=== PATIENT | female | born 1930 | race American Indian/Alaskan Native ===

== ENCOUNTER 2020-05-12 01:54 | Emergency (ER) | payer MEDICARE, MEDICAID ==
[2020-05-12] MEDS ORDERED: SODIUM CHLORIDE 0.9% 500 ML 500 ML IV ONE (03:06)
--- NOTE | 2020-05-12 03:08 | Emergency Department Report ---
ED Altered Mental Status HPI - General Chief Complaint: Altered Mental Status Stated Complaint: HALLUCINATIONS HYPERGLYCEMIA PUI?: No Time Seen by Provider: 05/12/20 03:05 Source: EMS Mode of arrival: Stretcher Limitations: Altered Mental Status - History of Present Illness Initial Comments: Patient is an 89-year-old female that presents emergency room with complaints of altered mental status, hallucinations. Patient brought in by EMS. Per EMS the patient has been having audio and tactile hallucinations. Family states the patient is improved today. Patient denies pain. Patient denies hallucinations. Patient is currently alert and oriented x1. Patient is oriented to person only. MD Complaint: altered mental status, confusion - Related Data Home Medications Medication Instructions Recorded Confirmed Last Taken Insulin Lispro Protamin/Lispro 24 units SUB-Q DAILY 05/12/20 05/12/20 1 Day Ago [HumaLOG Mix 75-25 Kwikpen] ~05/11/20 Allergies Allergy/AdvReac Type Severity Reaction Status Date / Time No Known Allergies Allergy Unverified 05/12/20 06:06 ED Review of Systems ROS: Stated complaint: HALLUCINATIONS HYPERGLYCEMIA Other details as noted in HPI Comment: Unobtainable due to pts medical conditions ED Past Medical Hx - Past Medical History Previous Medical History?: Yes - Family History Family history: no significant - Social History Smoking Status: Unknown if ever smoked Substance Use Type: None - Medications Home Medications: Home Medications Medication Instructions Recorded Confirmed Last Taken Type Insulin Lispro Protamin/Lispro 24 units SUB-Q DAILY 05/12/20 05/12/20 1 Day Ago History [HumaLOG Mix 75-25 Kwikpen] ~05/11/20 ED Physical Exam - General Limitations: Altered Mental Status General appearance: alert, in no apparent distress - Head Head exam: Present: atraumatic, normocephalic - Eye Eye exam: Present: normal appearance, PERRL Pupils: Present: normal accommodation - ENT ENT exam: Present: mucous membranes moist - Neck Neck exam: Present: normal inspection - Respiratory Respiratory exam: Present: normal lung sounds bilaterally. Absent: respiratory distress, wheezes - Cardiovascular Cardiovascular Exam: Present: regular rate, normal rhythm. Absent: systolic murmur, diastolic murmur, rubs, gallop - GI/Abdominal GI/Abdominal exam: Present: soft, normal bowel sounds. Absent: distended, te nderness, guarding - Extremities Exam Extremities exam: Present: normal inspection - Back Exam Back exam: Present: normal inspection - Neurological Exam Neurological exam: Present: alert, altered - Psychiatric Psychiatric exam: Present: normal affect, normal mood - Skin Skin exam: Present: warm, dry, intact, normal color. Absent: rash - Assessment Assessment Interval: Baseline - Level of Consciousness 1a. Level of Consciousness: alert/keenly responsive - LOC Questions 1b. LOC Questions: answers both correctly - LOC Command 1c. LOC Commands: performs tasks correctly - Best Gaze 2. Best Gaze: normal - Visual 3. Visual: no visual loss - Facial Palsy 4. Facial Palsy: normal symmetrical movement - Motor Arm 5a. Motor Arm Left: no drift 5b. Motor Arm Right: no drift - Motor Leg 6a. Motor Leg Left: no drift 6b. Motor Leg Right: no drift - Limb Ataxia 7. Limb Ataxia: absent - Sensory 8. Sensory: normal - Best Language 9. Best Language: no aphasia - Dysarthria 10. Dysarthria: normal - Extinction and Inattention 11. Extinction/Inattention: no abnormality - Scoring Total Score: 0 Stroke Severity: No Stroke Symptoms ED Course Vital Signs 05/12/20 05/12/20 05/12/20 02:15 02:30 02:45 Temperature 98.3 F Pulse Rate 93 H 89 Respiratory 16 18 15 Rate Blood Pressure 127/59 115/52 Blood Pressure 136/75 [Left] O2 Sat by Pulse 98 96 96 Oximetry 05/12/20 05/12/20 05/12/20 03:00 03:15 03:30 Temperature Pulse Rate 85 82 80 Respiratory 14 16 17 Rate Blood Pressure 93/42 110/44 111/50 Blood Pressure [Left] O2 Sat by Pulse 97 97 97 Oximetry 05/12/20 05/12/20 05/12/20 03:45 04:01 04:23 Temperature Pulse Rate 79 80 83 Respiratory 12 13 12 Rate Blood Pressure 119/49 127/51 Blood Pressure [Left] O2 Sat by Pulse 98 98 100 Oximetry 05/12/20 05/12/20 05/12/20 04:31 05:01 06:01 Temperature Pulse Rate 80 80 75 Respiratory 18 17 11 L Rate Blood Pressure 157/70 102/36 Blood Pressure [Left] O2 Sat by Pulse 99 97 Oximetry 05/12/20 05/12/20 05/12/20 07:01 08:01 08:30 Temperature Pulse Rate 78 Respiratory 14 18 Rate Blood Pressure 102/36 102/36 Blood Pressure [Left] O2 Sat by Pulse 99 98 Oximetry 05/12/20 05/12/20 05/12/20 08:32 13:06 16:09 Temperature 98.6 F Pulse Rate 79 72 72 Respiratory 18 18 18 Rate Blood Pressure Blood Pressure 143/65 181/71 125/43 [Left] O2 Sat by Pulse 98 98 97 Oximetry 05/12/20 05/13/20 05/13/20 18:47 10:55 15:53 Temperature 98.1 F 97.4 F L Pulse Rate 96 H 104 H 102 H Respiratory 18 16 16 Rate Blood Pressure Blood Pressure 125/66 131/74 126/49 [Left] O2 Sat by Pulse 96 99 98 Oximetry - Reevaluation(s) Reevaluation #1: Patient resting comfortably in bed. I discussed all results with patient. I discussed plan of care with patient. My plan is for the patient be admitted to the general psych unit. A mental health evaluation will be placed in the syst em. Patient will remain in the ER as an ER hold until the patient is cleared by our psychiatric team. The patient's final disposition will come from our psychiatric team. 05/12/20 05:45 - Lab Data Result diagrams: 05/12/20 03:17 05/12/20 03:17 Lab Results 05/12/20 05/12/20 05/12/20 Range/Units 03:17 03:17 03:17 WBC 11.6 H (4.5-11.0) K/mm3 RBC 3.81 (3.65-5.03) M/mm3 Hgb 11.5 (10.1-14.3) gm/dl Hct 34.3 (30.3-42.9) % MCV 90 (79-97) fl MCH 30 (28-32) pg MCHC 33 (30-34) % RDW 12.8 L (13.2-15.2) % Plt Count 327 (140-440) K/mm3 Lymph % (Auto) 23.9 (13.4-35.0) % [place] % (Auto) 11.0 H (0.0-7.3) % Eos % (Auto) 5.1 H (0.0-4.3) % Baso % (Auto) 0.2 (0.0-1.8) % Lymph # 2.8 (1.2-5.4) K/mm3 [place] # 1.3 H (0.0-0.8) K/mm3 Eos # 0.6 H (0.0-0.4) K/mm3 Baso # 0.0 (0.0-0.1) K/mm3 Seg Neutrophils % 59.8 (40.0-70.0) % Seg Neutrophils # 6.9 (1.8-7.7) K/mm3 Sodium 134 L (137-145) mmol/L Potassium 4.0 (3.6-5.0) mmol/L Chloride 99.9 (98-107) mmol/L Carbon Dioxide 23 (22-30) mmol/L Anion Gap 15 mmol/L BUN 13 (7-17) mg/dL Creatinine 0.8 (0.6-1.2) mg/dL Estimated GFR > 60 ml/min BUN/Creatinine Ratio 16 % Glucose 194 H (65-100) mg/dL POC Glucose (70-105) Lactic Acid 1.80 (0.7-2.0) mmol/L Calcium 8.8 (8.4-10.2) mg/dL Total Bilirubin 0.20 (0.1-1.2) mg/dL AST 12 (5-40) units/L ALT 6 L (7-56) units/L Alkaline Phosphatase 89 (35-129) units/L Total Creatine Kinase 53 (30-135) units/L Troponin T < 0.010 (0.00-0.029) ng/mL Total Protein 6.3 (6.3-8.2) g/dL Albumin 3.4 L (3.9-5) g/dL Albumin/Globulin Ratio 1.2 % Urine Color (Yellow) Urine Turbidity (Clear) Urine pH (5.0-7.0) Ur Specific [place] (1.003-1.030) Urine Protein (Negative) mg/dL Urine Glucose (UA) (Negative) mg/dL Urine Ketones (Negative) mg/dL Urine Blood (Negative) Urine Nitrite (Negative) Urine Bilirubin (Negative) Urine Urobilinogen (<2.0) mg/dL Ur Leukocyte Esterase (Negative) Urine WBC (Auto) (0.0-6.0) /HPF Urine RBC (Auto) (0.0-6.0) /HPF 08/13/20 08/13/20 08/13/20 Range/Units 04:54 10:58 16:23 WBC (4.5-11.0) K/mm3 RBC (3.65-5.03) M/mm3 Hgb (10.1-14.3) gm/dl Hct (30.3-42.9) % MCV (79-97) fl MCH (28-32) pg MCHC (30-34) % RDW (13.2-15.2) % Plt Count (140-440) K/mm3 Lymph % (Auto) (13.4-35.0) % [place] % (Auto) (0.0-7.3) % Eos % (Auto) (0.0-4.3) % Baso % (Auto) (0.0-1.8) % Lymph # (1.2-5.4) K/mm3 [place] # (0.0-0.8) K/mm3 Eos # (0.0-0.4) K/mm3 Baso # (0.0-0.1) K/mm3 Seg Neutrophils % (40.0-70.0) % Seg Neutrophils # (1.8-7.7) K/mm3 Sodium (137-145) mmol/L Potassium (3.6-5.0) mmol/L Chloride (98-107) mmol/L Carbon Dioxide (22-30) mmol/L Anion Gap mmol/L BUN (7-17) mg/dL Creatinine (0.6-1.2) mg/dL Estimated GFR ml/min BUN/Creatinine Ratio % Glucose (65-100) mg/dL POC Glucose 246 H 237 H (70-105) Lactic Acid (0.7-2.0) mmol/L Calcium (8.4-10.2) mg/dL Total Bilirubin (0.1-1.2) mg/dL AST (5-40) units/L ALT (7-56) units/L Alkaline Phosphatase (35-129) units/L Total Creatine Kinase (30-135) units/L Troponin T (0.00-0.029) ng/mL Total Protein (6.3-8.2) g/dL Albumin (3.9-5) g/dL Albumin/Globulin Ratio % Urine Color Straw (Yellow) Urine Turbidity Clear (Clear) Urine pH 6.0 (5.0-7.0) Ur Specific [place] 1.006 (1.003-1.030) Urine Protein <15 mg/dl (Negative) mg/dL Urine Glucose (UA) 50 (Negative) mg/dL Urine Ketones Neg (Negative) mg/dL Urine Blood Neg (Negative) Urine Nitrite Neg (Negative) Urine Bilirubin Neg (Negative) Urine Urobilinogen < 2.0 (<2.0) mg/dL Ur Leukocyte Esterase Neg (Negative) Urine WBC (Auto) < 1.0 (0.0-6.0) /HPF Urine RBC (Auto) 2.0 (0.0-6.0) /HPF 05/13/20 Range/Units 15:49 WBC (4.5-11.0) K/mm3 RBC (3.65-5.03) M/mm3 Hgb (10.1-14.3) gm/dl Hct (30.3-42.9) % MCV (79-97) fl MCH (28-32) pg MCHC (30-34) % RDW (13.2-15.2) % Plt Count (140-440) K/mm3 Lymph % (Auto) (13.4-35.0) % [place] % (Auto) (0.0-7.3) % Eos % (Auto) (0.0-4.3) % Baso % (Auto) (0.0-1.8) % Lymph # (1.2-5.4) K/mm3 [place] # (0.0-0.8) K/mm3 Eos # (0.0-0.4) K/mm3 Baso # (0.0-0.1) K/mm3 Seg Neutrophils % (40.0-70.0) % Seg Neutrophils # (1.8-7.7) K/mm3 Sodium (137-145) mmol/L Potassium (3.6-5.0) mmol/L Chloride (98-107) mmol/L Carbon Dioxide (22-30) mmol/L Anion Gap mmol/L BUN (7-17) mg/dL Creatinine (0.6-1.2) mg/dL Estimated GFR ml/min BUN/Creatinine Ratio % Glucose (65-100) mg/dL POC Glucose 314 H (70-105) Lactic Acid (0.7-2.0) mmol/L Calcium (8.4-10.2) mg/dL Total Bilirubin (0.1-1.2) mg/dL AST (5-40) units/L ALT (7-56) units/L Alkaline Phosphatase (35-129) units/L Total Creatine Kinase (30-135) units/L Troponin T (0.00-0.029) ng/mL Total Protein (6.3-8.2) g/dL Albumin (3.9-5) g/dL Albumin/Globulin Ratio % Urine Color (Yellow) Urine Turbidity (Clear) Urine pH (5.0-7.0) Ur Specific [place] (1.003-1.030) Urine Protein (Negative) mg/dL Urine Glucose (UA) (Negative) mg/dL Urine Ketones (Negative) mg/dL Urine Blood (Negative) Urine Nitrite (Negative) Urine Bilirubin (Negative) Urine Urobilinogen (<2.0) mg/dL Ur Leukocyte Esterase (Negative) Urine WBC (Auto) (0.0-6.0) /HPF Urine RBC (Auto) (0.0-6.0) /HPF - EKG Data -: EKG Interpreted by Mt EKG shows normal: sinus rhythm, axis, intervals, QRS complexes, ST-T waves Rate: normal - Radiology Data Radiology results: report reviewed CHEST 1 VIEW INDICATION / CLINICAL INFORMATION: Altered Mental Status. COMPARISON: 12/29/2010 FINDINGS: SUPPORT DEVICES: None. HEART / MEDIASTINUM: No significant abnormality. LUNGS / PLEURA: No significant pulmonary or pleural abnormality. No pneumothorax. ADDITIONAL FINDINGS: No significant additional findings. IMPRESSION: No acute disease or interval change from 12/29/2010 CT head/brain wo con INDICATION / CLINICAL INFORMATION: Altered Mental Status. TECHNIQUE: All CT scans at this location are performed using CT dose reduction for ALARA by means of automated exposure control. COMPARISON: None available. FINDINGS: Ventricle size is normal. There is focal low density seen in the left parieto- occipital region consistent with infarction. No mass or mass effect is seen. There is no evidence of intracranial hemorrhage. Visualized paranasal sinuses are clear. IMPRESSION: Focal low density in the left parieto-occipital region consistent with infarction. - Medical Decision Making Patient is an 89-year-old female that presents emergency room via EMS for hallucinations and altered mental status. Patient also had sleep for 2 days. Patient's family sent the patient to the emergency room for evaluation. Patient is confused on evaluation. Patient had labs and CT done. Patient's labs were unremarkable. Patient's UA was negative for UTI. Patient CT of the head was negative for acute findings. Patient is medically cleared. Patient will require admission to the geriatric psych floor. A mental health consult has been placed in system. Patient's final disposition will come from our psychiatry team. - Differential Diagnosis Psychosis, hallucination, altered mental status, insomnia Critical care attestation.: If time is entered above; I have spent that time in minutes in the direct care of this critically ill patient, excluding procedure time. ED Disposition Clinical Impression: Hallucination, Acute psychosis Altered mental state Qualifiers: Altered mental status type: unspecified Qualified Code(s): R41.82 - Altered mental status, unspecified Insomnia Qualifiers: Insomnia type: unspecified Qualified Code(s): G47.00 - Insomnia, unspecified Disposition: DC-01 TO HOME OR SELFCARE Is pt being admited?: No Does the pt Need Aspirin: No Condition: Stable Additional Instructions: OUTPATIENT MENTAL HEALTH RESOURCES [facility], [facility] Donita Milan MD: [address] [place] [address] [facility] [address] [place] [address] [place] [address] [place] [facility]: [employer] [address] [place] [address] [place] [address] [phone] [facility] Healthcare: [address] [place] [address] [address] [place] [address] [place] [address] [facility] [address] [facility]: Leeroy Galindo MD: [address] [facility] [address] [facility] [id number] [facility]: [address] [place], [place] [id number] [phone] [place] CRISIS AND ACCESS LINE: Referrals: PRIMARY CAREMD [Primary Care Provider] - 3-5 Days Time of Disposition: 05:46
[2020-05-12 03:55] LABS: Basophils % (Auto) 0.2 % (0.0-1.8); Eosinophils # (Auto) 0.6 K/mm3 (0.0-0.4); Eosinophils % (Auto) 5.1 % (0.0-4.3); Hematocrit 34.3 % (30.3-42.9); Hemoglobin 11.5 gm/dl (10.1-14.3); Lymphocytes # (Auto) 2.8 K/mm3 (1.2-5.4); Lymphocytes % (Auto) 23.9 % (13.4-35.0); Mean Corpuscular HGB Conc 33 % (30-34); Mean Corpuscular Volume 90 fl (79-97); Monocytes # (Auto) 1.3 K/mm3 (0.0-0.8); Platelet Count 327 K/mm3 (140-440); Red Blood Count 3.81 M/mm3 (3.65-5.03); Red Cell Distribution Width 12.8 % (13.2-15.2)
[2020-05-12 04:08] LABS: Alanine Aminotransferase 6 units/L (7-56); Albumin 3.4 g/dL (3.9-5); BUN/Creatinine Ratio 16; Blood Urea Nitrogen 13 mg/dL (7-17); Calcium 8.8 mg/dL (8.4-10.2); Hemolysis Index 7
--- NOTE | 2020-05-12 04:24 | XRay Report ---
CHEST 1 VIEW INDICATION / CLINICAL INFORMATION: Altered Mental Status. COMPARISON: 12/29/2010 FINDINGS: SUPPORT DEVICES: None. HEART / MEDIASTINUM: No significant abnormality. LUNGS / PLEURA: No significant pulmonary or pleural abnormality. No pneumothorax. ADDITIONAL FINDINGS: No significant additional findings. IMPRESSION: No acute disease or interval change from 12/29/2010 Signer Name: Mina Ware MD FACR Signed: 05/12/2020 4:20 AM Workstation Name: [id number]
--- NOTE | 2020-05-12 04:35 | Cat Scan Report ---
CT head/brain wo con INDICATION / CLINICAL INFORMATION: Altered Mental Status. TECHNIQUE: All CT scans at this location are performed using CT dose reduction for ALARA by means of automated e xposure control. COMPARISON: None available. FINDINGS: Ventricle size is normal. There is focal low density seen in the left parieto-occipital region consis tent with infarction. No mass or mass effect is seen. There is no evidence of intracranial hemorrhage . Visualized paranasal sinuses are clear. IMPRESSION: Focal low density in the left parieto-occipital region consistent with infarction. Signer Name: Mina Wrae MD FACR Signed: 05/12/2020 4:30 AM Workstation Name: [id number]
[2020-05-12 05:17] LABS: Bilirubin,Urine NEG (Negative); Blood,Urine NEG (Negative); Color,Urine Straw (Yellow); Protein,Urine <15 mg/dL mg/dL (Negative); Urobilinogen,Urine < 2.0 mg/dL (<2.0); WBC,Urine < 1.0 /HPF (0.0-6.0)
[2020-05-12] MEDS ORDERED: DEXTROSE 50% IN WATER (25GM) 50 ML SYRINGE IV PRN (12:50)
[2020-05-12] MEDS ORDERED: INSULIN REGULAR, HUMAN 100 UNIT/ML 3ML VIAL SUB-Q ONE ×2 (12:54→17:00)
[2020-05-12] MEDS ORDERED: INSULIN REGULAR, HUMAN 100 UNITS/1 ML ONE (13:00)
[2020-05-12] MEDS ORDERED: INSULIN REGULAR, HUMAN 100 UNIT/ML 3ML VIAL SUB-Q SCH ×2 (17:00→17:06)
[2020-05-13] MEDS ORDERED: SODIUM CHLORIDE 0.9% 1000 ML 1,000 ML ONE (00:28)
[2020-05-13] MEDS ORDERED: ACETAMINOPHEN 325 MG TAB PO ONE (15:18)
[2020-05-13 15:54] VITALS: BP 126/49
== END 2020-05-13 18:55 | disposition home or self-care (01) ==
LOC: ED 01:54
DX: G47.00 Insomnia, unspecified (principal); R41.82 Altered mental status, unspecified; F23 Brief psychotic disorder; Z79.899 Other long term (current) drug therapy
CPT/HCPCS: 36415; 70450; 71045; 80053; 81001; 82140; 82550; 82962; 84484; 85025; 93005; 99285; J7030; J7040; 96372; J1815

== ENCOUNTER 2020-12-10 16:39 | Emergency (ER) | payer MEDICARE ==
[2020-12-10] MEDS ORDERED: ONDANSETRON 4 MG/2 ML INJ IV ONE (16:56)
[2020-12-10] MEDS ORDERED: SODIUM CHLORIDE 0.9% 500 ML 500 ML IV ONE (16:56)
[2020-12-10] MEDS ORDERED: MORPHINE 4 MG/1 ML INJ IV ONE (16:56)
--- NOTE | 2020-12-10 17:01 | Emergency Department Report ---
ED Abdominal Pain HPI - General Stated Complaint: ABD PAIN Time Seen by Provider: 12/10/20 16:51 Source: patient, EMS - History of Present Illness Initial Comments: Patient is 89 years old female with history of hypertension, diabetes and dementia. Patient also had remote history of breast cancer. Patient presented to the ER via EMS from home for evaluation of abdominal pain. EMS stated that patient found to be clammy with a blood sugar of 67 patient given glucose by EMS and her blood sugar went up to 90. Patient family stated that patient was given milk of magnesia however she did have a bowel movement before the symptoms started. Patient is currently complaining of diffuse abdominal pain. She also stated that her chest hurt but she is unable to specify specific location. No recent history of fever or chills. MD Complaint: abdominal pain -: This afternoon Location: diffuse Migration to: no migration Severity: moderate Consistency: constant - Related Data Home Medications Medication Instructions Recorded Confirmed Last Taken Insulin Lispro Protamin/Lispro 24 units SUB-Q DAILY 05/12/20 05/12/20 1 Day Ago [HumaLOG Mix 75-25 Kwikpen] ~05/11/20 Previous Rx's Medication Instructions Recorded Last Taken Type Ciprofloxacin HCl 500 mg PO BID #14 tablet 12/10/20 Unknown Rx Docusate Sodium [Colace] 100 mg PO BID PRN #60 capsule 12/10/20 Unknown Rx Allergies Allergy/AdvReac Type Severity Reaction Status Date / Time No Known Allergies Allergy Unverified 05/12/20 06:06 ED Review of Systems ROS: Stated complaint: ABD PAIN Other details as noted in HPI Comment: All other systems reviewed and negative Constitutional: denies: chills, fever Respiratory: denies: cough, shortness of breath Cardiovascular: chest pain. denies: palpitations, dyspnea on exertion Gastrointestinal: abdominal pain, nausea, constipation. denies: vomiting, diarrhea, hematemesis, melena, hematochezia Musculoskeletal: denies: back pain Neurological: denies: headache, weakness ED Past Medical Hx - Past Medical History Hx Hypertension: Yes Hx Diabetes: Yes - Surgical History Additional Surgical History: unable to recall - Social History Smoking Status: Unknown if ever smoked Substance Use Type: None - Medications Home Medications: Home Medications Medication Instructions Recorded Confirmed Last Taken Type Insulin Lispro Protamin/Lispro 24 units SUB-Q DAILY 05/12/20 05/12/20 1 Day Ago History [HumaLOG Mix 75-25 Kwikpen] ~05/11/20 Ciprofloxacin HCl 500 mg PO BID #14 tablet 12/10/20 Unknown Rx Docusate Sodium [Colace] 100 mg PO BID PRN #60 capsule 12/10/20 Unknown Rx ED Physical Exam - General General appearance: alert, in distress - Head Head exam: Present: atraumatic, normocephalic, normal inspection - Eye Eye exam: Present: normal appearance, PERRL - ENT ENT exam: Present: normal exam, normal orophraynx, mucous membranes moist - Neck Neck exam: Present: normal inspection, full ROM. Absent: tenderness, meningismus - Respiratory Respiratory exam: Present: normal lung sounds bilaterally - Cardiovascular Cardiovascular Exam: Present: regular rate, normal rhythm, normal heart sounds - GI/Abdominal GI/Abdominal exam: Present: soft, normal bowel sounds, mass. Absent: distended, tenderness, guarding, rebound, rigid, organomegaly, bruit, pulsatile mass - Extremities Exam Extremities exam: Present: normal inspection, full ROM, normal capillary refill. Absent: tenderness, pedal edema, calf tenderness - Back Exam Back exam: Present: normal inspection - Neurological Exam Neurological exam: Present: alert. Absent: motor sensory deficit - Psychiatric Psychiatric exam: Present: anxious - Skin Skin exam: Present: warm, intact, normal color ED Course Vital Signs 12/10/20 12/10/20 12/10/20 17:00 17:15 17:16 Temperature 97.6 F Pulse Rate 92 H Respiratory 21 21 Rate Blood Pressure Blood Pressure 147/62 [Left] O2 Sat by Pulse 100 99 99 Oximetry 12/10/20 12/10/20 12/10/20 18:01 18:54 19:32 Temperature 97.4 F L Pulse Rate 80 96 H 89 Respiratory 10 L 21 15 Rate Blood Pressure 145/46 Blood Pressure 148/58 144/65 [Left] O2 Sat by Pulse 98 98 98 Oximetry 12/10/20 20:42 Temperature Pulse Rate 86 Respiratory 13 Rate Blood Pressure Blood Pressure 153/75 [Left] O2 Sat by Pulse 100 Oximetry - Reevaluation(s) Reevaluation #1: 12/10/20 21:02 Patient stated that she is feeling much better after the morphine. Patient sitting in the bed in no acute distress. Patient still denying any chest pain. No nausea or vomiting. We will continue to monitor. Reevaluation #2: 12/10/20 22:58 Patient stated that she is feeling much better and she want to go back home. Patient is alert, oriented x3 no acute distress. Second troponin is pending. ED Medical Decision Making - Lab Data Result diagrams: 12/10/20 17:01 12/10/20 17:01 - EKG Data -: EKG Interpreted by Me EKG shows normal: sinus rhythm Rate: normal - EKG Data Interpretation: no acute changes - Radiology Data Radiology results: report reviewed - Medical Decision Making Patient is 89 years old female with history of hypertension, diabetes and dementia. Patient also had remote history of breast cancer. Patient presented to the ER via EMS from home for evaluation of abdominal pain. EMS stated that patient found to be clammy with a blood sugar of 67 patient given glucose by EMS and her blood sugar went up to 90. Patient family stated that patient was given milk of magnesia however she did have a bowel movement before the symptoms started. Patient is currently complaining of diffuse abdominal pain. She also stated that her chest hurt but she is unable to specify specific location. No recent history of fever or chills. EKG is unremarkable. Chest x-ray is negative for acute finding. Labs reviewed and is unremarkable. CT abdomen and pelvis with IV contrast showed constipation. Patient received morphine 2 mg and Zofran. Patient stated that she is feeling much better. Patient given prescription for Colace and advised to follow-up with her primary doctor in the next 2 to 3 days and to return to the ER if she develop any new symptoms. Critical care attestation.: If time is entered above; I have spent that time in minutes in the direct care of this critically ill patient, excluding procedure time. ED Disposition Clinical Impression: Acute abdominal pain, Constipation, UTI (urinary tract infection) Disposition: -01 TO HOME OR SELFCARE Is pt being admited?: No Condition: Stable Instructions: Abdominal Pain, Adult, Constipation, Adult, Urinary Tract Infection, Adult Prescriptions: Ciprofloxacin HCl 500 mg PO BID #14 tablet Docusate Sodium [Colace] 100 mg PO BID PRN #60 capsule PRN Reason: Constipation Referrals: ANGIE ANDERSON MD [Primary Care Provider] - 3-5 Days
[2020-12-10 17:30] LABS: Basophils # (Auto) 0.1 K/mm3 (0.0-0.1); Basophils % (Auto) 0.9 % (0.0-1.8); Eosinophils # (Auto) 0.2 K/mm3 (0.0-0.4); Eosinophils % (Auto) 1.2 % (0.0-4.3); Hematocrit 33.2 % (30.3-42.9); Hemoglobin 11.4 gm/dl (10.1-14.3); Lymphocytes # (Auto) 2.6 K/mm3 (1.2-5.4); Lymphocytes % (Auto) 19.6 % (13.4-35.0); Mean Corpuscular HGB Conc 34 % (30-34); Mean Corpuscular Volume 88 fl (79-97); Monocytes # (Auto) 1.1 K/mm3 (0.0-0.8); Monocytes % (Auto) 8.6 % (0.0-7.3); Platelet Count 368 K/mm3 (140-440); Red Blood Count 3.75 M/mm3 (3.65-5.03); Red Cell Distribution Width 12.8 % (13.2-15.2)
[2020-12-10 17:38] LABS: INR 1.02 (0.87-1.13)
[2020-12-10 17:39] LABS: Partial Thromboplastin Time 30.3 Sec. (24.2-36.6)
[2020-12-10 17:48] LABS: Alanine Aminotransferase < 5 units/L (7-56); Albumin 4.2 g/dL (3.9-5); BUN/Creatinine Ratio 18; Bilirubin,Direct < 0.2 mg/dL (0-0.2); Blood Urea Nitrogen 21 mg/dL (7-17); Calcium 9.9 mg/dL (8.4-10.2); Hemolysis Index 18
[2020-12-10] MEDS ORDERED: PIPERACILLIN/TAZOBACTAM 3.375 3.375 GM/50 ML BAG IV ONE (18:22)
--- NOTE | 2020-12-10 19:20 | Cat Scan Report ---
CT ABDOMEN AND PELVIS WITH CONTRAST INDICATION / CLINICAL INFORMATION: Pain. TECHNIQUE: Axial CT images were obtained through the abdomen and pelvis after IV contrast. All CT sc ans at this location are performed using CT dose reduction for ALARA by means of automated exposure c ontrol. COMPARISON: None available. FINDINGS: Small hiatal hernia. Visualized lung bases are clear. Gallbladder is surgically absent. Liver, spleen, and adrenals are unremarkable. Pancreas is appropria te for age. There are prominent areas of cortical scarring within the right kidney with patchy areas of diminishe d enhancement throughout the right kidney. Small left renal cyst. No hydronephrosis. Bladder is parti ally decompressed, though grossly unremarkable. Uterus/adnexa are unremarkable for age. Moderate stool distends the rectal vault with fluid and stool noted throughout the remainder of the c olon. No colonic wall thickening. Postoperative changes right hemicolectomy. Stomach and small bowel are within normal limits. Moderate calcified plaque throughout the abdominal aorta and major branching vessels with severe athe rosclerotic narrowing of the right renal artery. The other major branches are patent. No aneurysm. There is a 5.3 cm chronic appearing collection in the right anterior abdominal wall, may reflect planning associate hussain hematoma. No free fluid, free air, or focal fluid collection is identified. IMPRESSION: 1. 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 Acute infarction or pyelonephritis is felt less likely. 2. Moderate amount of retained stool within the colon with a prominent amount of stool distending the rectal vault. Findings likely reflect constipation with fecal impaction. No evidence of stercoral co litis. 3. Otherwise, no acute abnormality of the abdomen or pelvis. 4. Additional chronic and postoperative findings as above. Signer Name: Mynor Randall MD Signed: 12/10/2020 7:16 PM Workstation Name: [id number]
[2020-12-10 19:59] LABS: Bilirubin,Urine NEG (Negative); Blood,Urine NEG (Negative); Color,Urine Yellow (Yellow); Mucus,Urine FEW /HPF; Protein,Urine <15 mg/dL mg/dL (Negative); Urobilinogen,Urine < 2.0 mg/dL (<2.0)
--- NOTE | 2020-12-10 20:12 | XRay Report ---
. XR chest 1V ap INDICATION / CLINICAL INFORMATION: chest pain. COMPARISON: 05/12/2020 FINDINGS: SUPPORT DEVICES: None. HEART /PULMONARY VASCULATURE: No significant abnormality. LUNGS / PLEURA: No significant pulmonary or pleural abnormality. No pneumothorax. ADDITIONAL FINDINGS: Chronic osseous findings are stable. IMPRESSION: 1. No acute findings. Signer Name: Mynor Randall MD Signed: 12/10/2020 8:07 PM Workstation Name: [id number]
[2020-12-10 20:43] VITALS: BP 153/75
== END 2020-12-10 23:50 | disposition home or self-care (01) ==
LOC: ED 16:39
DX: N39.0 Urinary tract infection, site not specified (principal); K59.00 Constipation, unspecified; R10.84 Generalized abdominal pain; I10 Essential (primary) hypertension; E11.9 Type 2 diabetes mellitus without complications; Z79.4 Long term (current) use of insulin; Z79.899 Other long term (current) drug therapy
CPT/HCPCS: 36415; 71045; 74177; 80048; 80076; 81001; 83690; 83880; 84484; 85025; 85610; 85730; 87040; 93005; 96374; 96375; 99285; J2270; J2405; J2543; J7040; Q9967

== ENCOUNTER 2020-12-21 19:07 | Observation (INO) | payer MEDICARE ==
--- NOTE | 2020-12-21 20:35 | Emergency Department Report ---
ED Abdominal Pain HPI - General Chief Complaint: Abdominal Pain Stated Complaint: BUTT PAIN PUI?: No Time Seen by Provider: 12/21/20 20:32 Source: patient, EMS Mode of arrival: Stretcher Limitations: No Limitations, Other - History of Present Illness Initial Comments: Patient is an 89-year-old female that presents emergency room with right lower quadrant pain and rectal pain. Patient states her symptoms possibly started 2 or 3 days ago. Patient states she is not sure when it started. Patient denies fever and chills. Patient denies nausea vomiting. Patient states that the pain is a severe pain. Patient states the pain is better with rest and worse with movement. Patient states that her rectum hurts when she is having a bowel movement. Patient denies dysuria. Patient denies nausea vomiting. Patient denies fever and chills. Patient denies chest pain or shortness of breath. Patient denies blood in her stool. Patient denies recent travel. Patient denies recent international travel. Patient denies exposure to the novel coronavirus. Patient denies sick contacts. Patient denies fever and chills. Patient denies cough. Patient denies diarrhea. Patient denies coming in contact with anybody with symptoms of the novel coronavirus. Patient has history of dementia. Patient is alert and oriented x2. Patient is oriented to self and place. Patient is disoriented to time. MD Complaint: abdominal pain -: Sudden Location: RLQ Migration to: no migration Severity: severe Quality: aching Consistency: constant Improves With: rest Worsens With: movement Associated Symptoms: denies: nausea, vomiting, diarrhea, fever, chills, constipation, dysuria, hematemesis, hematochezia, melena, hematuria, anorexia, syncope, other (Rectal pain) - Related Data Home Medications Medication Instructions Recorded Confirmed Last Taken Insulin Lispro Protamin/Lispro 24 units SUB-Q DAILY 05/12/20 05/12/20 1 Day Ago [HumaLOG Mix 75-25 Kwikpen] ~05/11/20 Previous Rx's Medication Instructions Recorded Last Taken Type Ciprofloxacin HCl 500 mg PO BID #14 tablet 12/10/20 Unknown Rx Docusate Sodium [Colace] 100 mg PO BID PRN #60 capsule 12/10/20 Unknown Rx Allergies Allergy/AdvReac Type Severity Reaction Status Date / Time No Known Allergies Allergy Unverified 05/12/20 06:06 ED Review of Systems ROS: Stated complaint: BUTT PAIN Other details as noted in HPI Comment: Unobtainable due to pts medical conditions ED Past Medical Hx - Past Medical History Previous Medical History?: Yes Hx Hypertension: Yes Hx Diabetes: Yes Hx Dementia: Yes - Surgical History Past Surgical History?: No Additional Surgical History: unable to recall - Family History Family history: no significant - Social History Smoking Status: Never Smoker Substance Use Type: None - Medications Home Medications: Home Medications Medication Instructions Recorded Confirmed Last Taken Type Insulin Lispro Protamin/Lispro 24 units SUB-Q DAILY 05/12/20 05/12/20 1 Day Ago History [HumaLOG Mix 75-25 Kwikpen] ~05/11/20 Ciprofloxacin HCl 500 mg PO BID #14 tablet 12/10/20 Unknown Rx Docusate Sodium [Colace] 100 mg PO BID PRN #60 capsule 12/10/20 Unknown Rx ED Physical Exam - General Limitations: Altered Mental Status, Other General appearance: alert, in no apparent distress - Head Head exam: Present: atraumatic, normocephalic - Eye Eye exam: Present: normal appearance - ENT ENT exam: Present: mucous membranes moist - Neck Neck exam: Present: normal inspection - Respiratory Respiratory exam: Present: normal lung sounds bilaterally. Absent: respiratory distress - Cardiovascular Cardiovascular Exam: Present: regular rate, normal rhythm. Absent: systolic murmur, diastolic murmur, rubs, gallop - GI/Abdominal GI/Abdominal exam: Present: soft, normal bowel sounds - Rectal Rectal exam: Present: heme (-) stool, other (Stool noted around the rectum. Tried and fresh stool noted. No rectal tenderness noted. Nurse in room during exam for file system installer.). Absent: heme (+) stool, black stool, bloody stool, mass, tenderness - Extremities Exam Extremities exam: Present: normal inspection - Back Exam Back exam: Present: normal inspection - Neurological Exam Neurological exam: Present: alert, altered - Psychiatric Psychiatric exam: Present: normal affect, normal mood - Skin Skin exam: Present: warm, dry, intact, normal color. Absent: rash ED Course Vital Signs 12/21/20 12/21/20 12/22/20 19:43 22:24 00:59 Temperature 98.5 F Pulse Rate 88 89 60 Respiratory 20 18 18 Rate Blood Pressure 168/76 151/72 139/88 [Left] O2 Sat by Pulse 100 97 97 Oximetry - Reevaluation(s) Reevaluation #1: Patient is moving in the bed and the rv service technician states they are able to get a good picture. Patient given Geodon 10 mg. 12/21/20 21:47 Reevaluation #2: Patient resting comfortably. Patient's CT is pending. 12/21/20 22:47 Reevaluation #3: No change in mentation. Patient is less restless. 12/22/20 00:08 Reevaluation #4: I discussed all results with patient. I discussed plan of care with patient. Patient agrees with plan of care and admission. Patient to be admitted to the hospitalist service. 12/22/20 01:08 - Consultations Consultation #1: Hospitalist consulted for admission. Hospitalist to admit patient. 12/22/20 01:08 ED Medical Decision Making - Lab Data Result diagrams: 12/21/20 19:55 12/21/20 19:55 - Radiology Data Radiology results: report reviewed CT ABDOMEN AND PELVIS WITH CONTRAST INDICATION: Patient complains of abdominal pain, and rectal pain. TECHNIQUE: Axial CT images were obtained through the abdomen and pelvis after 100 cc IV contrast. All CT scans at this location are performed using CT dose reduction for ALARA by means of automated exposure control. COMPARISON: CT abdomen pelvis 12/10/2020 FINDINGS: LOWER CHEST: No significant abnormality. LIVER: No significant abnormality. GALLBLADDER: Surgically absent BILE DUCTS: No significant abnormality. PANCREAS: No significant abnormality. SPLEEN: No significant abnormality. ADRENALS: No significant abnormality. RIGHT KIDNEY and URETER: Right renal scarring in 4 enhancement again noted likely secondary to chronic renal infarcts, unchanged LEFT KIDNEY and URETER: No significant abnormality. STOMACH and SMALL BOWEL: No significant abnormality. COLON: Moderate colonic diverticulosis without diverticulitis. Large amount of solid stool within rectum and colon, increased since prior study characteristic for constipation. APPENDIX: No significant abnormality. PERITONEUM: No free fluid. No free air. No fluid collection. LYMPH NODES: No significant adenopathy. AORTA and ARTERIES: Extensive vascular calcifications nonaneurysmal aorta and proximal right renal artery. IVC and VEINS: No significant abnormality. URINARY BLADDER: No significant abnormality. REPRODUCTIVE ORGANS: No significant abnormality. ADDITIONAL FINDINGS: Hernia mesh right lower quadrant of abdomen likely from Spegelian hernia repair with small residual postop seroma anteriorly measuring 2.0 x 5.3 cm image 97. SKELETAL SYSTEM: No significant abnormality. IMPRESSION: 1. Fecal impaction and severe constipation. No bowel obstruction. 2. Colonic diverticulosis without diverticulitis 3. 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 TECHNIQUE: All CT scans at this location are performed using CT dose reduction for ALARA by means of automated exposure control. COMPARISON: Head CT 05/12/2020 FINDINGS: HEMORRHAGE: None. EXTRA-AXIAL SPACES: Normal in size and morphology for the patient's age. VENTRICULAR SYSTEM: Normal in size and morphology for the patient's age. 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 MIDLINE SHIFT OR HERNIATION: None. CEREBELLUM / BRAINSTEM: No significant abnormality. ORBITS: Normal as visualized. SOFT TISSUES of HEAD: No significant abnormality. CALVARIUM: No significant abnormality. PARANASAL SINUSES / MASTOID AIR CELLS: Normal as visualized. ADDITIONAL FINDINGS: Moderate vascular calcifications both cavernous carotid and vertebral arteries. IMPRESSION: 1. No acute intracranial abnormality. 2. Stable left parieto-occipital CVA. - Medical Decision Making Patient is an 89-year-old female who presents emergency room with complaints to right lower quadrant abdominal pain, rectal pain. Patient has altered mental status. Is unclear what the patient's baseline mental status is. Patient answers some questions appropriately. Patient had labs done which were essentially unremarkable except for dehydration renal insufficiency. Patient had a CT scan of the abdomen which showed fecal impaction and constipation. Patient denies any other acute findings. Patient had a head CT for the altered mental status was negative for acute findings. Patient admitted to the hospitalist service for further evaluation treatment and IV hydration. critical care time documented due to the multiple reassessments, prolonged time at the bedside, interpretation of diagnostics and labs. - Differential Diagnosis Rectal pain, abdominal pain, diverticulitis, altered mental status, gastroe Critical Care Time: Yes Critical care time in (mins) excluding proc time.: 35 Critical care attestation.: If time is entered above; I have spent that time in minutes in the direct care of this critically ill patient, excluding procedure time. Critical Care Time: 35 minutes ED Disposition Clinical Impression: Acute abdominal pain, Fecal impaction, Renal insufficiency, Dehydration, Rectal pain Constipation Qualifiers: Constipation type: unspecified constipation type Qualified Code(s): K59.00 - Constipation, unspecified Altered mental state Qualifiers: Altered mental status type: unspecified Qualified Code(s): R41.82 - Altered mental status, unspecified Disposition: 09 OP ADMIT IP TO THIS HOSP Is pt being admited?: Yes Does the pt Need Aspirin: No Condition: Critical Time of Disposition: 00:57
[2020-12-21 20:40] LABS: Albumin 3.9 g/dL (3.9-5); BUN/Creatinine Ratio 15; Blood Urea Nitrogen 20 mg/dL (7-17); Calcium 9.3 mg/dL (8.4-10.2); Hemolysis Index 32
[2020-12-21 20:41] LABS: Alanine Aminotransferase < 5 units/L (7-56); Hematocrit 34.7 % (30.3-42.9); Hemoglobin 11.8 gm/dl (10.1-14.3); Mean Corpuscular HGB Conc 34 % (30-34); Mean Corpuscular Volume 89 fl (79-97); Platelet Count 364 K/mm3 (140-440); Red Cell Distribution Width 13.1 % (13.2-15.2)
[2020-12-21] MEDS ORDERED: ZIPRASIDONE MESYLATE 20 MG VIAL IM ONE (21:45)
[2020-12-21] MEDS ORDERED: WATER FOR INJ Sterile (PF) 10 ML ONE (21:52)
[2020-12-21 22:59] LABS: Bilirubin,Urine NEG (Negative); Blood,Urine NEG (Negative); Color,Urine Yellow (Yellow); Mucus,Urine FEW /HPF; Protein,Urine <15 mg/dL mg/dL (Negative); RBC,Urine < 1.0 /HPF (0.0-6.0); Urobilinogen,Urine < 2.0 mg/dL (<2.0)
--- NOTE | 2020-12-21 23:53 | Cat Scan Report ---
CT ABDOMEN AND PELVIS WITH CONTRAST INDICATION: Patient complains of abdominal pain, and rectal pain. TECHNIQUE: Axial CT images were obtained through the abdomen and pelvis after 100 cc IV contrast. All CT scans at this location are performed using CT dose reduction for ALARA by means of automated exposure contr ol. COMPARISON: CT abdomen pelvis 12/10/2020 FINDINGS: LOWER CHEST: No significant abnormality. LIVER: No significant abnormality. GALLBLADDER: Surgically absent BILE DUCTS: No significant abnormality. PANCREAS: No significant abnormality. SPLEEN: No significant abnormality. ADRENALS: No significant abnormality. RIGHT KIDNEY and URETER: Right renal scarring in 4 enhancement again noted likely secondary to chroni c renal infarcts, unchanged LEFT KIDNEY and URETER: No significant abnormality. STOMACH and SMALL BOWEL: No significant abnormality. COLON: Moderate colonic diverticulosis without diverticulitis. Large amount of solid stool within rec phillip and colon, increased since prior study characteristic for constipation. APPENDIX: No significant abnormality. PERITONEUM: No free fluid. No free air. No fluid collection. LYMPH NODES: No significant adenopathy. AORTA and ARTERIES: Extensive vascular calcifications nonaneurysmal aorta and proximal right renal ar griselda. IVC and VEINS: No significant abnormality. URINARY BLADDER: No significant abnormality. REPRODUCTIVE ORGANS: No significant abnormality. ADDITIONAL FINDINGS: Hernia mesh right lower quadrant of abdomen likely from Spegelian hernia repair with small residual postop seroma anteriorly measuring 2.0 x 5.3 cm image 97. SKELETAL SYSTEM: No significant abnormality. IMPRESSION: 1. Fecal impaction and severe constipation. No bowel obstruction. 2. Colonic diverticulosis without diverticulitis 3. 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
[2020-12-22] MEDS ORDERED: SODIUM CHLORIDE 0.9% 1000 ML 1,000 ML IV ONE (00:56)
--- NOTE | 2020-12-22 01:35 | Cat Scan Report ---
CT HEAD WITHOUT CONTRAST INDICATION / CLINICAL INFORMATION: Altered Mental Status. TECHNIQUE: All CT scans at this location are performed using CT dose reduction for ALARA by means of automated e xposure control. COMPARISON: Head CT 05/12/2020 FINDINGS: HEMORRHAGE: None. EXTRA-AXIAL SPACES: Normal in size and morphology for the patient's age. VENTRICULAR SYSTEM: Normal in size and morphology for the patient's age. 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 MIDLINE SHIFT OR HERNIATION: None. CEREBELLUM / BRAINSTEM: No significant abnormality. ORBITS: Normal as visualized. SOFT TISSUES of HEAD: No significant abnormality. CALVARIUM: No significant abnormality. PARANASAL SINUSES / MASTOID AIR CELLS: Normal as visualized. ADDITIONAL FINDINGS: Moderate vascular calcifications both cavernous carotid and vertebral arteries. IMPRESSION: 1. No acute intracranial abnormality. 2. Stable left parieto-occipital CVA. Signer Name: Moustapha Muro MD Signed: 12/22/2020 1:31 AM Workstation Name: [id number]
[2020-12-22] MEDS ORDERED: ALUM-MAG HYDROXIDE-SIMETHICONE 200-200-20MG/5ML ORAL LIQD 30 ML PO PRN (02:39)
[2020-12-22] MEDS ORDERED: ONDANSETRON 4 MG/2 ML INJ IV PRN (02:39)
[2020-12-22] MEDS ORDERED: IBUPROFEN 600 MG TAB PO PRN (02:39)
[2020-12-22] MEDS ORDERED: POLYETHYLENE GLYCOL 3350 17 GM POWDER PO PRN (02:42)
[2020-12-22] MEDS ORDERED: DEXTROSE 50% IN WATER (25GM) 50 ML SYRINGE IV PRN (02:46)
--- NOTE | 2020-12-22 02:53 | History and Physical Report ---
History of Present Illness Date of examination: 12/22/20 Date of admission: 12/22/20 01:09 Chief complaint: Abdominal pain History of present illness: 89-year-old female with past medical history of hypertension diabetes and dementia was brought to the emergency room with right lower quadrant pain and rectal pain for the last 2 or 3 days ago. Patient denies fever and chills. Patient denies nausea vomiting. Patient complaining of pain 5-6/10. Patient states the pain is better with rest and worse with movement. Patient states that her rectum hurts when she is having a bowel movement. Patient denies dysuria. Patient denies fever and chills. Patient denies chest pain or shortness of breath. Patient denies blood in her stool. In the emergency room patient is found to have KIMBER also fecal impaction Past History Past Medical History: diabetes, hypertension Medications and Allergies Allergies Allergy/AdvReac Type Severity Reaction Status Date / Time No Known Allergies Allergy Unverified 05/12/20 06:06 Home Medications Medication Instructions Recorded Confirmed Last Taken Type Insulin Lispro Protamin/Lispro 24 units SUB-Q DAILY 05/12/20 05/12/20 1 Day Ago History [HumaLOG Mix 75-25 Kwikpen] ~05/11/20 Ciprofloxacin HCl 500 mg PO BID #14 tablet 12/10/20 Unknown Rx Docusate Sodium [Colace] 100 mg PO BID PRN #60 capsule 12/10/20 Unknown Rx Active Meds: Active Medications Acetaminophen (Acetaminophen 325 Mg Tab) 650 mg PO Q4H PRN PRN Reason: Pain MILD(1-3)/Fever >100.5/CROWDER Al Hydrox/Mg Hydrox/Simethicone (Alum-Mag Hydroxide-Simethicone 063-731-54pt/5ml Oral Liqd 30 Ml) 30 ml PO Q4H PRN PRN Reason: Indigestion Dextrose (Dextrose 50% In Water (25gm) 50 Ml Syringe) 50 ml IV Q30MIN PRN; Protocol PRN Reason: Hypoglycemia Docusate Sodium (Docusate Sodium 100 Mg Cap) 100 mg PO BID PHILLY Famotidine (Famotidine 20 Mg Tab) 20 mg PO BID PHILLY Sodium Chloride (Nacl 0.9% 1000 Ml) 1,000 mls @ 250 mls/hr IV ONCE ONE Stop: 12/22/20 04:55 Last Admin: 12/22/20 01:06 Dose: 250 mls/hr Documented by: Sodium Chloride (Nacl 0.45% 1000 Ml) 1,000 mls @ 100 mls/hr IV DIRECT PHILLY Ibuprofen (Ibuprofen 600 Mg Tab) 600 mg PO Q6H PRN PRN Reason: Pain, Mild (1-3) Insulin Human Lispro (Insulin Lispro 100 Unit/Ml) 0 unit SUB-Q ACHS PHILLY; Protocol Levofloxacin (Levofloxacin 500 Mg Tab) 500 mg PO QDAY PHILLY Ondansetron HCl (Ondansetron 4 Mg/2 Ml Inj) 4 mg IV Q8H PRN PRN Reason: Nausea And Vomiting Polyethylene Glycol (Polyethylene Glycol 3350 17 Gm Powder) 17 gm PO QDAY PRN PRN Reason: Constipation Sodium Chloride (Sodium Chloride 0.9% 10 Ml Flush Syringe) 10 ml IV BID PHILLY Sodium Chloride (Sodium Chloride 0.9% 10 Ml Flush Syringe) 10 ml IV PRN PRN PRN Reason: LINE FLUSH Review of Systems Constitutional: chronic pain Gastrointestinal: abdominal pain, constipation Exam - Constitutional Vitals: Temp Pulse Resp BP Pulse Ox 98.5 F 60 18 139/88 97 12/21/20 19:43 12/22/20 00:59 12/22/20 00:59 12/22/20 00:59 12/22/20 00:59 General appearance: Present: no acute distress, well-nourished - EENT Eyes: Present: PERRL ENT: hearing intact, clear oral mucosa - Neck Neck: Present: supple, normal ROM - Respiratory Respiratory effort: normal Respiratory: bilateral: diminished - Cardiovascular Heart Sounds: Present: S1 & S2. Absent: rub, click - Extremities Extremities: pulses symmetrical, No edema Peripheral Pulses: within normal limits - Abdominal General gastrointestinal: Present: soft, non-tender, non-distended, normal bowel sounds Female genitourinary: Present: normal - Integumentary Integumentary: Present: clear, warm, dry - Musculoskeletal Musculoskeletal: gait normal, strength equal bilaterally - Psychiatric Psychiatric: appropriate mood/affect, intact judgment & insight - Neurologic Neurologic: CNII-XII intact, moves all extremities Results - Labs CBC & Chem 7: 12/21/20 19:55 12/21/20 19:55 Labs: Laboratory Last Values WBC 11.0 K/mm3 (4.5-11.0) 12/21/20 19:55 RBC 3.90 M/mm3 (3.65-5.03) 12/21/20 19:55 Hgb 11.8 gm/dl (10.1-14.3) 12/21/20 19:55 Hct 34.7 % (30.3-42.9) 12/21/20 19:55 MCV 89 fl (79-97) 12/21/20 19:55 MCH 30 pg (28-32) 12/21/20 19:55 MCHC 34 % (30-34) 12/21/20 19:55 RDW 13.1 % (13.2-15.2) L 12/21/20 19:55 Plt Count 364 K/mm3 (140-440) 12/21/20 19:55 Lymph % (Auto) Advanced Practice Nurse Psychotherapist 12/21/20 19:55 [place] % (Auto) Advanced Practice Nurse Psychotherapist 12/21/20 19:55 Eos % (Auto) Advanced Practice Nurse Psychotherapist 12/21/20 19:55 Baso % (Auto) Advanced Practice Nurse Psychotherapist 12/21/20 19:55 Lymph # (Auto) Advanced Practice Nurse Psychotherapist 12/21/20 19:55 [place] # (Auto) Advanced Practice Nurse Psychotherapist 12/21/20 19:55 Eos # (Auto) Advanced Practice Nurse Psychotherapist 12/21/20 19:55 Baso # (Auto) Advanced Practice Nurse Psychotherapist 12/21/20 19:55 Seg Neutrophils % Advanced Practice Nurse Psychotherapist 12/21/20 19:55 Seg Neutrophils # Advanced Practice Nurse Psychotherapist 12/21/20 19:55 Sodium 137 mmol/L (137-145) 12/21/20 19:55 Potassium 4.6 mmol/L (3.6-5.0) 12/21/20 19:55 Chloride 100.8 mmol/L (98-107) 12/21/20 19:55 Carbon Dioxide 23 mmol/L (22-30) 12/21/20 19:55 Anion Gap 18 mmol/L 12/21/20 19:55 BUN 20 mg/dL (7-17) H 12/21/20 19:55 Creatinine 1.3 mg/dL (0.6-1.2) H 12/21/20 19:55 Estimated GFR 47 ml/min 12/21/20 19:55 BUN/Creatinine Ratio 15 % 12/21/20 19:55 Glucose 217 mg/dL (65-100) H 12/21/20 19:55 Calcium 9.3 mg/dL (8.4-10.2) 12/21/20 19:55 Total Bilirubin 0.20 mg/dL (0.1-1.2) 12/21/20 19:55 AST 11 units/L (5-40) 12/21/20 19:55 ALT < 5 units/L (7-56) L 12/21/20 19:55 Alkaline Phosphatase 93 units/L (35-129) 12/21/20 19:55 Total Protein 6.4 g/dL (6.3-8.2) 12/21/20 19:55 Albumin 3.9 g/dL (3.9-5) 12/21/20 19:55 Albumin/Globulin Ratio 1.6 % 12/21/20 19:55 Lipase 55 units/L (13-60) 12/21/20 19:55 Urine Color Yellow (Yellow) 12/21/20 22:52 Urine Turbidity Clear (Clear) 12/21/20 22:52 Urine pH 6.0 (5.0-7.0) 12/21/20 22:52 Ur Specific [place] 1.012 (1.003-1.030) 12/21/20 22:52 Urine Protein <15 mg/dl mg/dL (Negative) 12/21/20 22:52 Urine Glucose (UA) 50 mg/dL (Negative) 12/21/20 22:52 Urine Ketones Neg mg/dL (Negative) 12/21/20 22:52 Urine Blood Neg (Negative) 12/21/20 22:52 Urine Nitrite Neg (Negative) 12/21/20 22:52 Urine Bilirubin Neg (Negative) 12/21/20 22:52 Urine Urobilinogen < 2.0 mg/dL (<2.0) 12/21/20 22:52 Ur Leukocyte Esterase Neg (Negative) 12/21/20 22:52 Urine WBC (Auto) 1.0 /HPF (0.0-6.0) 12/21/20 22:52 Urine RBC (Auto) < 1.0 /HPF (0.0-6.0) 12/21/20 22:52 Urine Mucus Few /HPF 12/21/20 22:52 - Imaging and Cardiology CT scan - abdomen: image reviewed Assessment and Plan VTE prophylaxis?: Mechanical Plan of care discussed with patient/family: Yes - Patient Problems (1) Acute abdominal pain Current Visit: Yes Status: Acute Plan to address problem: Admit the patient to the medical floor. We will put the patient on 1800 kcal ADA diet. Pepcid 20 mg p.o. every 12 hours. Zofran 4 mg IV every 6 hours as needed. Tylenol 650 mg p.o. every 6 as needed. MiraLAX 17 g p.o. daily. Colace 100 mg p.o. twice daily. Will consult GI if needed. (2) Altered mental state Current Visit: Yes Status: Acute Qualifiers: Altered mental status type: unspecified Qualified Code(s): R41.82 - Altered mental status, unspecified Plan to address problem: Patient is more awake alert right now. Initial CT scan of the head shows no acute intracranial abnormality. We will monitor the mental status closely. (3) Constipation Current Visit: Yes Status: Acute Qualifiers: Constipation type: unspecified constipation type Qualified Code(s): K59.00 - Constipation, unspecified Plan to address problem: We will put the patient on MiraLAX 17 g p.o. daily. Colace 100 mg p.o. twice daily. (4) Dehydration Current Visit: Yes Status: Acute Plan to address problem: IV fluid half-normal saline at the rate of 100 cc/h. Avoid nephrotoxic drug. Recheck BMP in the morning (5) Fecal impaction Current Visit: Yes Status: Acute Plan to address problem: We will put the patient on MiraLAX 17 g p.o. daily and Colace 100 mg p.o. twice daily. We also try Fleet enema. If needed will consult surgery in the morning (6) Renal insufficiency Current Visit: Yes Status: Acute Plan to address problem: IV fluid half-normal saline at the rate of 100 cc/h. Avoid nephrotoxic drug. Recheck BMP in the morning (7) DVT prophylaxis Current Visit: Yes Status: Acute Plan to address problem: We will put the patient on SCD for DVT prophylaxis. Pepcid 20 mg p.o. twice daily for GI prophylaxis. Patient is a full code
[2020-12-22] MEDS: SODIUM CHLORIDE 0.45% 1000 ML 1,000 ML IV SCH (08:52)
[2020-12-22] MEDS: INSULIN LISPRO 100 UNIT/ML SUB-Q SCH ×4 (09:26→22:09)
[2020-12-22] MEDS: DOCUSATE SODIUM 100 MG CAP PO SCH ×3 (09:27→21:31)
[2020-12-22] MEDS ORDERED: FAMOTIDINE 20 MG TAB PO SCH (10:00)
[2020-12-22] MEDS ORDERED: levoFLOXacin 500 MG TAB PO SCH (10:00)
--- NOTE | 2020-12-22 10:29 | Progress Note ---
Assessment and Plan Assessment and plan: --Acute abdominal pain Current Visit: Yes Status: Acute Plan to address problem: Pain medications, stool softeners to relieve constipation Supportive care -- Altered mental state/acute metabolic encephalopathy Current Visit: Yes Status: Acute Plan to address problem: Multifactorial advanced age and dementia, severe constipation Dehydration fecal impaction, renal insufficiency Treat the underlying cause, supportive care --Constipation/fecal impaction Current Visit: Yes Status: Acute Plan to address problem: Continue MiraLAX 17 g p.o. daily. Colace 100 mg p.o. twice daily. If no improvement consider enema GI evaluation if needed --Dehydration Current Visit: Yes Status: Acute Plan to address problem: Continue IV fluids, encourage plenty oral fluids --KIMBER; vasomotor nephropathy Current Visit: Yes Status: Acute Plan to address problem: IV fluids, avoid nephrotoxic agents, monitor renal function Nephrology consultation if needed --DVT prophylaxis Current Visit: Yes Status: Acute Plan to address problem: SCDs History Interval history: I seen and examined the patient at the bedside Patient's chart and medications reviewed Patient is confused, restless Not in acute distress Vital signs noted Hospitalist Physical - Constitutional Vitals: Temp Pulse Resp BP Pulse Ox 98.5 F 60 18 139/88 98 12/21/20 19:43 12/22/20 00:59 12/22/20 00:59 12/22/20 00:59 12/22/20 10:07 General appearance: Present: no acute distress, well-nourished, other (Confused) - EENT Eyes: Present: PERRL, EOM intact - Neck Neck: Present: supple, normal ROM - Respiratory Respiratory effort: normal Respiratory: bilateral: diminished, negative: rales, rhonchi, wheezing - Cardiovascular Rhythm: regular Heart Sounds: Present: S1 & S2 - Extremities Extremities: no ischemia, No edema - Abdominal General gastrointestinal: soft, non-tender, non-distended, normal bowel sounds - Integumentary Integumentary: Present: clear, warm - Psychiatric Psychiatric: agitated (At times), other (Confused) - Neurologic Neurologic: moves all extremities Results - Labs CBC & Chem 7: 12/21/20 19:55 12/21/20 19:55 Labs: Laboratory Last Values WBC 11.0 K/mm3 (4.5-11.0) 12/21/20 19:55 RBC 3.90 M/mm3 (3.65-5.03) 12/21/20 19:55 Hgb 11.8 gm/dl (10.1-14.3) 12/21/20 19:55 Hct 34.7 % (30.3-42.9) 12/21/20 19:55 MCV 89 fl (79-97) 12/21/20 19:55 MCH 30 pg (28-32) 12/21/20 19:55 MCHC 34 % (30-34) 12/21/20 19:55 RDW 13.1 % (13.2-15.2) L 12/21/20 19:55 Plt Count 364 K/mm3 (140-440) 12/21/20 19:55 Lymph % (Auto) Director Of Architecture 12/21/20 19:55 Dixie % (Auto) Director Of Architecture 12/21/20 19:55 Eos % (Auto) Director Of Architecture 12/21/20 19:55 Baso % (Auto) Director Of Architecture 12/21/20 19:55 Lymph # (Auto) Director Of Architecture 12/21/20 19:55 Dixie # (Auto) Director Of Architecture 12/21/20 19:55 Eos # (Auto) Director Of Architecture 12/21/20 19:55 Baso # (Auto) Director Of Architecture 12/21/20 19:55 Seg Neutrophils % Director Of Architecture 12/21/20 19:55 Seg Neutrophils # Director Of Architecture 12/21/20 19:55 Sodium 137 mmol/L (137-145) 12/21/20 19:55 Potassium 4.6 mmol/L (3.6-5.0) 12/21/20 19:55 Chloride 100.8 mmol/L (98-107) 12/21/20 19:55 Carbon Dioxide 23 mmol/L (22-30) 12/21/20 19:55 Anion Gap 18 mmol/L 12/21/20 19:55 BUN 20 mg/dL (7-17) H 12/21/20 19:55 Creatinine 1.3 mg/dL (0.6-1.2) H 12/21/20 19:55 Estimated GFR 47 ml/min 12/21/20 19:55 BUN/Creatinine Ratio 15 % 12/21/20 19:55 Glucose 217 mg/dL (65-100) H 12/21/20 19:55 Calcium 9.3 mg/dL (8.4-10.2) 12/21/20 19:55 Total Bilirubin 0.20 mg/dL (0.1-1.2) 12/21/20 19:55 AST 11 units/L (5-40) 12/21/20 19:55 ALT < 5 units/L (7-56) L 12/21/20 19:55 Alkaline Phosphatase 93 units/L (35-129) 12/21/20 19:55 Total Protein 6.4 g/dL (6.3-8.2) 12/21/20 19:55 Albumin 3.9 g/dL (3.9-5) 12/21/20 19:55 Albumin/Globulin Ratio 1.6 % 12/21/20 19:55 Lipase 55 units/L (13-60) 12/21/20 19:55 Urine Color Yellow (Yellow) 12/21/20 22:52 Urine Turbidity Clear (Clear) 12/21/20 22:52 Urine pH 6.0 (5.0-7.0) 12/21/20 22:52 Ur Specific [place] 1.012 (1.003-1.030) 12/21/20 22:52 Urine Protein <15 mg/dl mg/dL (Negative) 12/21/20 22:52 Urine Glucose (UA) 50 mg/dL (Negative) 12/21/20 22:52 Urine Ketones Neg mg/dL (Negative) 12/21/20 22:52 Urine Blood Neg (Negative) 12/21/20 22:52 Urine Nitrite Neg (Negative) 12/21/20 22:52 Urine Bilirubin Neg (Negative) 12/21/20 22:52 Urine Urobilinogen < 2.0 mg/dL (<2.0) 12/21/20 22:52 Ur Leukocyte Esterase Neg (Negative) 12/21/20 22:52 Urine WBC (Auto) 1.0 /HPF (0.0-6.0) 12/21/20 22:52 Urine RBC (Auto) < 1.0 /HPF (0.0-6.0) 12/21/20 22:52 Urine Mucus Few /HPF 12/21/20 22:52 Active Medications - Current Medications Current Medications: Generic Name Dose Route Start Last Admin Trade Name Freq PRN Reason Stop Dose Admin Acetaminophen 650 mg 12/22/20 02:39 Acetaminophen 325 Mg Tab PO Q4H PRN Pain MILD(1-3)/Fever >100.5/CROWDER Al Hydrox/Mg Hydrox/Simethicone 30 ml 12/22/20 02:39 Alum-Mag Hydroxide-Simethicone 050-585-16kl/5ml Oral Liqd 30 Ml PO Q4H PRN Indigestion Dextrose 0 ml 12/22/20 02:46 Dextrose 50% In Water (25gm) 50 Ml Syringe IV Q30MIN PRN Hypoglycemia Protocol Docusate Sodium 100 mg 12/22/20 10:00 12/22/20 09:27 Docusate Sodium 100 Mg Cap PO 100 mg BID PHILLY Administration Famotidine 10 mg 12/22/20 22:00 Famotidine 10 Mg Tab PO BID PHILLY Sodium Chloride 1,000 mls @ 100 mls/hr 12/22/20 03:00 12/22/20 08:52 Nacl 0.45% 1000 Ml IV 100 mls/hr DIRECT PHILLY Administration Ibuprofen 600 mg 12/22/20 02:39 Ibuprofen 600 Mg Tab PO Q6H PRN Pain, Mild (1-3) Insulin Human Lispro 0 unit 12/22/20 07:30 12/22/20 09:26 Insulin Lispro 100 Unit/Ml SUB-Q 2 unit ACHS PHILLY Administration Protocol Levofloxacin 250 mg 12/23/20 10:00 Levofloxacin 250 Mg Tab PO 12/26/20 12:00 DAILY PHILLY Ondansetron HCl 4 mg 12/22/20 02:39 Ondansetron 4 Mg/2 Ml Inj IV Q8H PRN Nausea And Vomiting Polyethylene Glycol 17 gm 12/22/20 02:42 Polyethylene Glycol 3350 17 Gm Powder PO QDAY PRN Constipation Sodium Chloride 10 ml 12/22/20 10:00 12/22/20 09:28 Sodium Chloride 0.9% 10 Ml Flush Syringe IV Not Given BID PHILLY Sodium Chloride 10 ml 12/22/20 02:39 Sodium Chloride 0.9% 10 Ml Flush Syringe IV PRN PRN LINE FLUSH
[2020-12-22] MEDS: ALPRAZolam 0.25 MG TAB PO PRN ×2 (12:24→20:58)
[2020-12-22] MEDS: FAMOTIDINE 10 MG TAB PO SCH ×2 (20:58→21:31)
[2020-12-23] MEDS: SODIUM CHLORIDE 0.45% 1000 ML 1,000 ML IV SCH (05:39)
[2020-12-23 08:10] LABS: Basophils # (Auto) 0.1 K/mm3 (0.0-0.1); Basophils % (Auto) 0.7 % (0.0-1.8); Eosinophils # (Auto) 0.4 K/mm3 (0.0-0.4); Eosinophils % (Auto) 3.5 % (0.0-4.3); Hematocrit 33.3 % (30.3-42.9); Hemoglobin 11.2 gm/dl (10.1-14.3); Lymphocytes # (Auto) 3.5 K/mm3 (1.2-5.4); Lymphocytes % (Auto) 32.2 % (13.4-35.0); Mean Corpuscular HGB Conc 34 % (30-34); Mean Corpuscular Volume 90 fl (79-97); Monocytes % (Auto) 8.8 % (0.0-7.3); Platelet Count 362 K/mm3 (140-440); Red Blood Count 3.71 M/mm3 (3.65-5.03); Red Cell Distribution Width 13.6 % (13.2-15.2)
[2020-12-23 08:31] LABS: Calcium 9.4 mg/dL (8.4-10.2)
[2020-12-23] MEDS: INSULIN LISPRO 100 UNIT/ML SUB-Q SCH ×4 (09:27→21:48)
[2020-12-23] MEDS: FAMOTIDINE 10 MG TAB PO SCH ×2 (09:28→21:53)
[2020-12-23] MEDS: levoFLOXacin 250 MG TAB PO SCH (09:28)
[2020-12-23] MEDS: ENOXAPARIN 30 MG/0.3 ML INJ SUB-Q SCH (09:28)
[2020-12-23] MEDS: DOCUSATE SODIUM 100 MG CAP PO SCH ×2 (09:28→21:53)
[2020-12-23] MEDS: ALPRAZolam 0.25 MG TAB PO PRN (11:29)
--- NOTE | 2020-12-23 17:47 | Progress Note ---
Assessment and Plan Assessment and plan: --Acute abdominal pain Current Visit: Yes Status: Acute Plan to address problem: Pain medications, stool softeners to relieve constipation Patient had bowel movements, check follow-up x-ray -- Altered mental state/acute metabolic encephalopathy Current Visit: Yes Status: Acute Plan to address problem: Multifactorial advanced age and dementia, severe constipation Dehydration fecal impaction, renal insufficiency Treat the underlying cause, supportive care Continues to be confused probably her baseline --Constipation/fecal impaction Current Visit: Yes Status: Acute Plan to address problem: Continue MiraLAX 17 g p.o. daily. Colace 100 mg p.o. twice daily. Patient had good bowel movements today We will check abdominal x-ray --Dehydration Current Visit: Yes Status: Acute Plan to address problem: Continue IV fluids, encourage plenty oral fluids --KIMBER; vasomotor nephropathy Current Visit: Yes Status: Acute Plan to address problem: Resolved, continue IV fluids and supportive care --DVT prophylaxis Current Visit: Yes Status: Acute Plan to address problem: SCDs We will closely monitor the patient and adjust management as needed Plan of care reviewed with the patient's nurse 12/23/2020; patient's constipation improved' check abdominal x-ray PT evaluation,Possible discharge tomorrow if stable History Interval history: I seen and examined the patient at the bedside Patient's chart and medications reviewed No new events reported by the nursing Patient is confused Had bowel movements last night and this morning Vital signs reviewed Hospitalist Physical - Constitutional Vitals: Temp Pulse Resp BP Pulse Ox 98.6 F 103 H 18 170/75 95 12/23/20 12:02 12/23/20 12:02 12/23/20 12:02 12/23/20 12:02 12/23/20 12:02 General appearance: Present: no acute distress, well-nourished, other (Confused) - EENT Eyes: Present: PERRL, EOM intact - Neck Neck: Present: supple, normal ROM - Respiratory Respiratory effort: normal Respiratory: bilateral: diminished, negative: rales, rhonchi, wheezing - Cardiovascular Rhythm: regular Heart Sounds: Present: S1 & S2 - Extremities Extremities: no ischemia, No edema - Abdominal General gastrointestinal: soft, non-tender, non-distended, normal bowel sounds - Integumentary Integumentary: Present: clear, warm - Psychiatric Psychiatric: agitated, other (Confused) - Neurologic Neurologic: moves all extremities, other (Dementia) Results - Labs CBC & Chem 7: 12/23/20 06:18 12/23/20 06:18 Labs: Laboratory Last Values WBC 10.8 K/mm3 (4.5-11.0) 12/23/20 06:18 RBC 3.71 M/mm3 (3.65-5.03) 12/23/20 06:18 Hgb 11.2 gm/dl (10.1-14.3) 12/23/20 06:18 Hct 33.3 % (30.3-42.9) 12/23/20 06:18 MCV 90 fl (79-97) 12/23/20 06:18 MCH 30 pg (28-32) 12/23/20 06:18 MCHC 34 % (30-34) 12/23/20 06:18 RDW 13.6 % (13.2-15.2) 12/23/20 06:18 Plt Count 362 K/mm3 (140-440) 12/23/20 06:18 Lymph % (Auto) 32.2 % (13.4-35.0) 12/23/20 06:18 [place] % (Auto) 8.8 % (0.0-7.3) H 12/23/20 06:18 Eos % (Auto) 3.5 % (0.0-4.3) 12/23/20 06:18 Baso % (Auto) 0.7 % (0.0-1.8) 12/23/20 06:18 Lymph # (Auto) 3.5 K/mm3 (1.2-5.4) 12/23/20 06:18 [place] # (Auto) 1.0 K/mm3 (0.0-0.8) H 12/23/20 06:18 Eos # (Auto) 0.4 K/mm3 (0.0-0.4) 12/23/20 06:18 Baso # (Auto) 0.1 K/mm3 (0.0-0.1) 12/23/20 06:18 Seg Neutrophils % 54.8 % (40.0-70.0) 12/23/20 06:18 Seg Neutrophils # 5.9 K/mm3 (1.8-7.7) 12/23/20 06:18 Sodium 139 mmol/L (137-145) 12/23/20 06:18 Potassium 4.7 mmol/L (3.6-5.0) 12/23/20 06:18 Chloride 103.8 mmol/L (98-107) 12/23/20 06:18 Carbon Dioxide 27 mmol/L (22-30) 12/23/20 06:18 Anion Gap 13 mmol/L 12/23/20 06:18 BUN 14 mg/dL (7-17) 12/23/20 06:18 Creatinine 1.2 mg/dL (0.6-1.2) 12/23/20 06:18 Estimated GFR 51 ml/min 12/23/20 06:18 BUN/Creatinine Ratio 12 % 12/23/20 06:18 Glucose 147 mg/dL (65-100) H 12/23/20 06:18 POC Glucose 169 mg/dL (70-105) H 12/23/20 15:31 Calcium 9.4 mg/dL (8.4-10.2) 12/23/20 06:18 Total Bilirubin 0.20 mg/dL (0.1-1.2) 12/21/20 19:55 AST 11 units/L (5-40) 12/21/20 19:55 ALT < 5 units/L (7-56) L 12/21/20 19:55 Alkaline Phosphatase 93 units/L (35-129) 12/21/20 19:55 Total Protein 6.4 g/dL (6.3-8.2) 12/21/20 19:55 Albumin 3.9 g/dL (3.9-5) 12/21/20 19:55 Albumin/Globulin Ratio 1.6 % 12/21/20 19:55 Lipase 55 units/L (13-60) 12/21/20 19:55 Urine Color Yellow (Yellow) 12/21/20 22:52 Urine Turbidity Clear (Clear) 12/21/20 22:52 Urine pH 6.0 (5.0-7.0) 12/21/20 22:52 Ur Specific [place] 1.012 (1.003-1.030) 12/21/20 22:52 Urine Protein <15 mg/dl mg/dL (Negative) 12/21/20 22:52 Urine Glucose (UA) 50 mg/dL (Negative) 12/21/20 22:52 Urine Ketones Neg mg/dL (Negative) 12/21/20 22:52 Urine Blood Neg (Negative) 12/21/20 22:52 Urine Nitrite Neg (Negative) 12/21/20 22:52 Urine Bilirubin Neg (Negative) 12/21/20 22:52 Urine Urobilinogen < 2.0 mg/dL (<2.0) 12/21/20 22:52 Ur Leukocyte Esterase Neg (Negative) 12/21/20 22:52 Urine WBC (Auto) 1.0 /HPF (0.0-6.0) 12/21/20 22:52 Urine RBC (Auto) < 1.0 /HPF (0.0-6.0) 12/21/20 22:52 Urine Mucus Few /HPF 12/21/20 22:52 Tillman/IV: Voiding Method Toilet Active Medications - Current Medications Current Medications: Generic Name Dose Route Start Last Admin Trade Name Freq PRN Reason Stop Dose Admin Acetaminophen 650 mg 12/22/20 02:39 Acetaminophen 325 Mg Tab PO Q4H PRN Pain MILD(1-3)/Fever >100.5/CROWDER Al Hydrox/Mg Hydrox/Simethicone 30 ml 12/22/20 02:39 Alum-Mag Hydroxide-Simethicone [id number]/5ml Oral Liqd 30 Ml PO Q4H PRN Indigestion Alprazolam 0.25 mg 12/22/20 11:51 12/23/20 11:29 Alprazolam 0.25 Mg Tab PO 0.25 mg Q12HR PRN Administration Agitation Dextrose 0 ml 12/22/20 02:46 Dextrose 50% In Water (25gm) 50 Ml Syringe IV Q30MIN PRN Hypoglycemia Protocol Docusate Sodium 100 mg 12/22/20 10:00 12/23/20 09:28 Docusate Sodium 100 Mg Cap PO 100 mg BID PHILLY Administration Enoxaparin Sodium 30 mg 12/23/20 10:00 12/23/20 09:28 Enoxaparin 30 Mg/0.3 Ml Inj SUB-Q 30 mg QDAY PHILLY Administration Protocol Famotidine 10 mg 12/22/20 22:00 12/23/20 09:28 Famotidine 10 Mg Tab PO 10 mg BID PHILLY Administration Sodium Chloride 1,000 mls @ 100 mls/hr 12/22/20 03:00 12/23/20 05:39 Nacl 0.45% 1000 Ml IV 100 mls/hr DIRECT PHILLY Administration Ibuprofen 600 mg 12/22/20 02:39 Ibuprofen 600 Mg Tab PO Q6H PRN Pain, Mild (1-3) Insulin Human Lispro 0 unit 12/22/20 07:30 12/23/20 17:00 Insulin Lispro 100 Unit/Ml SUB-Q 2 unit ACHS PHILLY Administration Protocol Levofloxacin 250 mg 12/23/20 10:00 12/23/20 09:28 Levofloxacin 250 Mg Tab PO 12/26/20 12:00 250 mg DAILY PHILLY Administration Ondansetron HCl 4 mg 12/22/20 02:39 Ondansetron 4 Mg/2 Ml Inj IV Q8H PRN Nausea And Vomiting Polyethylene Glycol 17 gm 12/22/20 02:42 Polyethylene Glycol 3350 17 Gm Powder PO QDAY PRN Constipation Sodium Chloride 10 ml 12/22/20 10:00 12/23/20 09:28 Sodium Chloride 0.9% 10 Ml Flush Syringe IV Not Given BID PHILLY Sodium Chloride 10 ml 12/22/20 02:39 Sodium Chloride 0.9% 10 Ml Flush Syringe IV PRN PRN LINE FLUSH Nutrition/Malnutrition Assess - Dietary Evaluation Nutrition/Malnutrition Findings: Nutrition Notes Start: 12/22/20 10:53 Freq: Status: Active Protocol: Document 12/22/20 10:53 CW (Rec: 12/22/20 11:01 [id number]) Nutrition Notes Need for Assessment generated from: MD Order,Education Initial or Follow up Assessment Current Diagnosis Acute Kidney Injury,Diabetes, Hypertension Other Pertinent Diagnosis Dementia,Abd pain, consipation , fecal impaction, AMS, dehydration Current Diet Consistent Carbohydrate Diet Labs/Tests BUN 20 Cr 1.3 BG 217 Pertinent Medications Colace Humalog NS at 100 ml/hr Height 5 ft 5 in Weight 64.6 kg [place] Body Weight (kg) 56.81 BMI 23.7 Weight Status Appropriate Subjective/Other Information MD consult for education. Pt not appropriate for education d/t AMS. Poor intake of breakfast. Will monitor intakes. Will monitor renal related labs for worsening kideny functioning for need for diet change. Pt very confused during attempt at nut screen. Unable to obtain nutritional hx. Pt would eat with cueing and supervision of typewriter assembly and parts inspector. Provided pt with ONS and ank 25% when cued. Burn Absent Trauma Absent GI Symptoms None Current % PO Negligible Minimum of two criteria No physical signs of malnutrition #1 Nutrition Diagnosis Inadequate oral intake Etiology AMS As Evidenced by Signs and Symptoms 0% of breakfast consumed this morning and neglible amount of lunch Is patient on ventilator? No Is Patient Ambulatory and/or Out of Bed Yes REE-([facility]-ambulatory/OOB) [ [id number] [id number]] Calculation Used for Recommendations [facility] Additional Notes protein needs: 65 - 78 g (1 - 1.2 g/kgBW for advacned age) fluid needs: 1 ml/kcal or per MD Nutrition Intervention Change Diet Order: Continue Consistent Carbohydrate Diet Add Supplement/Snack (indicate name/kcal Glucerna BID /protein ) Provides kCal: 440 Provides Protein (gm) 20 Teaching Recipient Patient Teaching Methods Discussion Response to Teaching Unable to comprehend Barriers to Learning Cognitive/Verbal,Emotional RD phone number provided No Patient aware of follow up options No Goal #1 Meet at least 80% of kcal and protein needs via PO Anticipated Discharge Needs: Consistent Carbohydrate Diet Follow-Up By: 12/26/20 Additional Comments F/U Intakes, ONS tolerance, renal functioning
--- NOTE | 2020-12-23 19:19 | XRay Report ---
ABDOMEN 3 VIEW(S) INDICATION / CLINICAL INFORMATION: Abdominal pain, constipation. COMPARISON: CT abdomen/pelvis dated 12/21/2020. FINDINGS: TUBES / LINES: None. BOWEL GAS PATTERN: No significant abnormality. FREE AIR / EXTRALUMINAL GAS: None seen. ADDITIONAL FINDINGS: No significant additional findings. CHEST: Visualized chest shows no significant abnormality. IMPRESSION: 1. No significant abnormality. Signer Name: Roque Ware MD Signed: 12/23/2020 7:15 PM Workstation Name: [id number]
[2020-12-23] MEDS: ACETAMINOPHEN 325 MG TAB PO PRN (20:53)
[2020-12-24] MEDS: ALPRAZolam 0.25 MG TAB PO PRN ×2 (01:50→12:21)
[2020-12-24] MEDS: FAMOTIDINE 10 MG TAB PO SCH (09:25)
[2020-12-24] MEDS: INSULIN LISPRO 100 UNIT/ML SUB-Q SCH ×2 (09:25→12:25)
[2020-12-24] MEDS: ENOXAPARIN 30 MG/0.3 ML INJ SUB-Q SCH (09:25)
[2020-12-24] MEDS: levoFLOXacin 250 MG TAB PO SCH (09:25)
[2020-12-24] MEDS: DOCUSATE SODIUM 100 MG CAP PO SCH (09:25)
--- NOTE | 2020-12-24 10:25 | Discharge Summary ---
Providers - Providers Date of Admission: 12/22/20 01:09 Date of discharge: 12/24/20 Attending physician: EMMANUELLE DWYER 12/22/20 02:46 Consult to Dietitian/Nutrition [CONS] Routine Physician Instructions: Reason For Exam: Reason for Consult: Diet education 12/23/20 18:18 Physical Therapy Evaluation and Treat [CONS] Routine Comment: Reason For Exam: Evaluate and treat/DC needs Primary care physician: SCIENCE TUTOR Hospitalization Reason for admission: Chronic constipation/rectal pain/possible proctitis Condition: Stable Pertinent studies: 12/22/2020 ;CT abdomen and pelvis; fecal impaction severe constipation no bowel obstruction, diverticulosis without diverticulitis 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 chronic hematoma seroma adjacent to the right lower quadrant spigelian hernia mesh No acute abnormality 12/22/2020 ;CT head without contrast no acute intracranial abnormality stable left parieto-occipital CVA no left intracranial abnormality box 12/23/2020 abdominal series; No significant abnormality noted Hospital course: 89-year-old frail elderly female patient was admitted through emergency room with abdominal and rectal pain of 2 to 3 days duration Patient complains of rectal pain while trying to have a bowel movement, no hematemesis melena or rectal bleeding Initial work-up in the emergency room with CT abdomen and pelvis revealed fecal impaction and chronic constipation Patient was admitted to the hospital, started on bowel regimen with stool softeners, started pain medications as well as Antibiotics for possible proctitis. Patient had significant improvement of constipation with multiple bowel movements with stool softeners Patient today is comfortable, tolerating oral nutrition, had a bowel movement this morning, blood sugars in the normal range Vital signs are stable, patient is alert and awake not in acute distress Hemodynamically and clinically stable at discharge Advised to follow with primary care physician 3 to 5 days Final diagnosis --Acute abdominal pain Current Visit: Yes Status: Acute Plan to address problem: Pain medications, stool softeners to relieve constipation Patient had bowel movements, check follow-up x-ray -- Altered mental state/acute metabolic encephalopathy Current Visit: Yes Status: Acute Plan to address problem: Multifactorial advanced age and dementia, severe constipation Dehydration fecal impaction, renal insufficiency Treat the underlying cause, supportive care Continues to be confused probably her baseline --Constipation/fecal impaction Current Visit: Yes Status: Acute Plan to address problem: Continue MiraLAX 17 g p.o. daily. Colace 100 mg p.o. twice daily. Patient had good bowel movements today We will check abdominal x-ray --Dehydration Current Visit: Yes Status: Acute Plan to address problem: Continue IV fluids, encourage plenty oral fluids --KIMBER; vasomotor nephropathy Current Visit: Yes Status: Acute Plan to address problem: Resolved, continue IV fluids and supportive care --DVT prophylaxis Current Visit: Yes Status: Acute Plan to address problem: SCDs Stable at discharge Disposition: DC-01 TO HOME OR SELFCARE Final Discharge Diagnosis (Prints w/discharge instructions): Final diagnosis;. --Fecal impaction[resolved]. --Chronic constipation[improved. --Rectal drain/proctitis symptoms resolved. --Dehydration; resolved I. --Toxic metabolic encephalopathy improved. --Acute kidney injury; resolved Time spent for discharge: 35 min Core Measure Documentation - Palliative Care Palliative Care/ Comfort Measures: Not Applicable - Core Measures Any of the following diagnoses?: none Exam - Constitutional Vitals: Temp Pulse Resp BP Pulse Ox 97.5 F L 83 15 95/37 98 12/24/20 05:04 12/24/20 05:04 12/24/20 05:04 12/24/20 05:04 12/24/20 05:04 General appearance: Present: no acute distress, well-nourished, other (Confused at times) - EENT Eyes: Present: PERRL, EOM intact - Neck Neck: Present: supple, normal ROM - Respiratory Respiratory effort: normal Respiratory: bilateral: diminished, negative: rales, rhonchi, wheezing - Cardiovascular Rhythm: regular Heart Sounds: Present: S1 & S2 - Extremities Extremities: no ischemia, No edema - Abdominal General gastrointestinal: Present: soft, non-tender, non-distended, normal bowel sounds - Integumentary Integumentary: Present: clear, warm - Musculoskeletal Musculoskeletal: generalized weakness - Psychiatric Psychiatric: appropriate mood/affect, cooperative - Neurologic Neurologic: moves all extremities, other (Confused at times) Plan Activity: advance as tolerated, fall precautions Diet: diabetic, advance as tolerated Additional Instructions: Fall precautions. Aspiration precautions. Patient did not require long-acting insulin during hospital stay. Advised to check blood sugars and adjust long-acting insulin dose as needed. If you have worsening symptoms contact MD or go to emergency room Follow up with: PRIMARY CARE,MD [Primary Care Provider] - 7 Days Prescriptions: levoFLOXacin [Levaquin] 250 mg PO QDAY #3 tablet polyethylene glycoL 3350 [Miralax 3350] 17 gm PO QDAY PRN #30 powd.pack PRN Reason: Constipation Famotidine [Pepcid] 10 mg PO BID #30 tablet ALPRAZolam [Xanax TAB] 0.25 mg PO Q12HR PRN #14 tablet PRN Reason: Agitation
[2020-12-24 12:02] VITALS: BP 142/73
[2020-12-24] MEDS: ACETAMINOPHEN 325 MG TAB PO PRN (12:21)
== END 2020-12-24 14:07 | disposition home or self-care (01) ==
LOC: ED 19:07 → 3A 12-22 01:09
PROVIDERS: ADMIT Hospitalist; ATTEND Internal Medicine
DX: K56.41 Fecal impaction (principal); R10.31 Right lower quadrant pain; R41.82 Altered mental status, unspecified; N28.9 Disorder of kidney and ureter, unspecified; E86.0 Dehydration; N17.0 Acute kidney failure with tubular necrosis; I10 Essential (primary) hypertension; E11.9 Type 2 diabetes mellitus without complications; F02.80 Dementia in other diseases classified elsewhere, unspecified severity, without behavioral disturbance, psychotic disturbance, mood disturbance, and anxiety; Z79.4 Long term (current) use of insulin
CPT/HCPCS: 36415; 70450; 74022; 74177; 80048; 80053; 81001; 82962; 83690; 85025; 96360; 96361; 96372; 99291; G0378; J1650; J3486; J7030; Q9967; J1815

== ENCOUNTER 2021-03-19 17:51 | Emergency (ER) | payer MEDICARE | END 2021-03-19 22:00 | LOC: ED 17:51 | DX: K59.00 Constipation, unspecified (principal); Z53.21 Procedure and treatment not carried out due to patient leaving prior to being seen by health care provider ==